=== PATIENT | female | born 1985 | race Caucasian/White ===

== ENCOUNTER 2016-07-07 07:59 | Day surgery (SDC) | payer OTHER ==
[2016-07-07] MEDS ORDERED: LACTATED RINGERS 1,000 ML IV ONE ×2 (08:28→09:55)
[2016-07-07] MEDS ORDERED: PROPOFOL 200 MG/20 ML VIAL IVP ONE (09:10)
[2016-07-07] MEDS ORDERED: MIDAZOLAM 2 MG/2 ML VIAL IVP ONE (09:10)
[2016-07-07] MEDS ORDERED: fentaNYL 250 MCG/5 ML VIAL IVP ONE (09:10)
== END 2016-07-07 08:00 | disposition home or self-care (01) ==
PROC: 0DBL8ZX Excision of Transverse Colon, Via Natural or Artificial Opening Endoscopic, Diagnostic (ICD-10-PCS; 2016-07-07)
PROC: 0DBN8ZX Excision of Sigmoid Colon, Via Natural or Artificial Opening Endoscopic, Diagnostic (ICD-10-PCS; 2016-07-07)
PROC: 0DBP8ZX Excision of Rectum, Via Natural or Artificial Opening Endoscopic, Diagnostic (ICD-10-PCS; 2016-07-07)
PROC: 0DBM8ZX Excision of Descending Colon, Via Natural or Artificial Opening Endoscopic, Diagnostic (ICD-10-PCS; 2016-07-07)
PROC: 0DBH8ZX Excision of Cecum, Via Natural or Artificial Opening Endoscopic, Diagnostic (ICD-10-PCS; 2016-07-07)
PROC: 0DBK8ZX Excision of Ascending Colon, Via Natural or Artificial Opening Endoscopic, Diagnostic (ICD-10-PCS; principal; 2016-07-07 09:15)
DX: R10.31 Right lower quadrant pain (principal); R19.4 Change in bowel habit; R19.5 Other fecal abnormalities; K59.00 Constipation, unspecified; R19.7 Diarrhea, unspecified; F41.9 Anxiety disorder, unspecified; K64.8 Other hemorrhoids
CPT/HCPCS: 45380; 81025; J3010; J7120

== ENCOUNTER 2016-11-18 12:14 | Emergency (ER) | payer OTHER ==
[2016-11-18] MEDS ORDERED: GABAPENTIN 100 MG CAPSULE PO STA (15:23)
--- NOTE | 2016-11-18 15:33 | ED Physician Documentation ---
PD HPI FOCAL NEURO - Stated complaint Stated Complaint: BI HAND NUMBNESS - Chief complaint Chief Complaint: Neuro - History obtained from History obtained from: Patient - History of Present Illness Timing - onset: Other (Previously healthy 31-year-old woman who for the last 4 weeks has had a progressive illness that started with burning of her hand and has progressed to burning of both upper and lower extremities and decreased dexterity especially in the upper extremities with neck and headache. She had a cervical spine x-ray done by her primary care physician that was normal and per her, I am unable to review them, labs including inflammatory markers and vitamin testing that were basically normal.) Review of Systems Constitutional: denies: Fever, Chills, Weight Loss, Sweats Nose: denies: Rhinorrhea / runny nose, Congestion Cardiac: denies: Chest pain / pressure, Palpitations Respiratory: denies: Dyspnea, Cough GI: denies: Abdominal Pain, Nausea, Vomiting PD PAST MEDICAL HISTORY - Past Medical History Cardiovascular: None Respiratory: None Endocrine/Autoimmune: None GI: Other : None HEENT: None Psych: None Musculoskeletal: None Derm: None - Past Surgical History General: Appendectomy HEENT: Tonsil/Adenoidectomy - Present Medications Home Medications: Ambulatory Orders Medication Instructions Recorded Confirmed Gabapentin 300 mg PO TID #90 capsule 11/18/16 Oxycodone HCl/Acetaminophen 1 - 2 tab PO Q4H PRN #15 tablet 11/18/16 [Percocet 5-325 mg Tablet] - Allergies Allergies/Adverse Reactions: Allergies Allergy/AdvReac Type Severity Reaction Status Date / Time No Known Drug Allergies Allergy Verified 07/06/16 13:56 PD ED PE NORMAL - Vitals Vital signs reviewed: Yes - General General: Alert and oriented X 3, No acute distress - HEENT HEENT: PERRL, EOMI - Neck Neck: Supple, no meningeal sign, No bony TTP - Cardiac Cardiac: RRR, No murmur - Respiratory Respiratory: No respiratory distress, Clear bilaterally - Abdomen Abdomen: Normal bowel sounds, Soft, Non tender - Back Back: No CVA TTP, No spinal TTP - Extremities Extremities: No edema, No calf tenderness / cord - Neuro Neuro: Alert and oriented X 3, No motor deficit, No sensory deficit, Normal speech - Psych Psych: Normal mood, Normal affect NIHSS - Time Time: 15:20 - Level of Consciousness Level of consciousness: (0) Alert, Keenly responsive LOC Questions: (0) Answers both Q's correct LOC Commands: (0) Performs both correctly - Gaze Best Gaze: (0) Normal - Visual Visual: (0) No loss - Facial Palsy Facial Palsy: (0) Normal, symmetrical movement - Motor Arms (both separate) Motor Arm (right): (0) No drift Motor Arm (left): (0) No drift - Motor Legs (both separate) Motor Leg (right): (0) No drift Motor Leg (left): (0) No drift - Limb Ataxia Limb Ataxia: (0) Absent - Sensory Sensory: (0) Normal - Best Language Best Language: (0) No aphasia - Dysarthria Dysarthria: (0) Normal - Extinction and Inattention (formally neg Extinction and inattention: (0) No abnormality - Total Score/Results Total Score/Result: 0 Results - Vitals Vitals: Vital Signs - 24 hr 11/18/16 12:30 Temperature 36.2 C L Heart Rate 76 Respiratory 18 Rate Blood Pressure 125/84 H O2 Saturation 99 Oxygen O2 Source Room air PD MEDICAL DECISION MAKING - ED course ED course: 31-year-old woman presents with progressive neurologic illness, much has already been ruled out in the outpatient setting. Try to get an MRI today, however was too late in the day for her and she seemed happy with a trial of gabapentin and Percocet pending outpatient follow-up. Departure - Departure Disposition: 01 Home, Self Care Clinical Impression: Neuropathy Condition: Good Record reviewed to determine appropriate education?: Yes Prescriptions: Gabapentin 300 mg PO TID #90 capsule Oxycodone HCl/Acetaminophen [Percocet 5-325 mg Tablet] 1 - 2 tab PO Q4H PRN #15 tablet PRN Reason: Pain Comments: Keep your appointment for MRI next week as discussed. Do not drink or drive with either of the medications I am giving you. Return if worse. Your blood pressure was elevated today on check into the emergency department. This does not mean that you have hypertension, it is a common phenomenon to come to the emergency department and have elevated blood pressure. I recommend that she see her primary care physician within the week to have it rechecked when you are feeling better.
[2016-11-18] MEDS ORDERED: GABAPENTIN 300 MG CAPSULE ONE (15:40)
[2016-11-18 15:53] VITALS: BP 109/76
== END 2016-11-18 16:07 | disposition home or self-care (01) ==
LOC: ED 12:14
DX: G62.9 Polyneuropathy, unspecified (principal); R03.0 Elevated blood-pressure reading, without diagnosis of hypertension
CPT/HCPCS: 99283; A9270; 80053; 83690; 84443; 85025; 85651; 86140

== ENCOUNTER 2017-02-02 10:49 | Emergency (ER) | payer OTHER ==
--- NOTE | 2017-02-02 12:04 | XRAY Preliminary Report ---
Exam: XR Chest 2 View PA/LAT IMPRESSION: 1. Unremarkable 2-view chest radiography. [facility] SITE ID: [id number]
--- NOTE | 2017-02-02 12:06 | XRAY Report ---
EXAM: CHEST RADIOGRAPHY EXAM DATE: 02/02/2017 11:43 AM. CLINICAL HISTORY: Shortness of breath. COMPARISON: None. TECHNIQUE: 2 views. FINDINGS: Lungs/Pleura: No focal opacities or vascular congestion. No pleural effusion or pneumothorax. Normal volumes. Mediastinum: Heart and mediastinal contours are unremarkable. Other: Bones unremarkable. IMPRESSION: 1. Unremarkable 2-view chest radiography. [facility] Referring Provider Line: [phone] SITE ID: [id number]
--- NOTE | 2017-02-02 12:30 | ED Physician Documentation ---
PD HPI DYSPNEA - Stated complaint Stated Complaint: SOA - Chief complaint Chief Complaint: Resp - History obtained from History obtained from: Patient - History of Present Illness Timing - onset: How many months ago (4) Timing - onset during: Rest Timing - duration: Months (4) Timing - details: Gradual onset, Still present, Waxing and waning Improved by: Rest Associated symptoms: Cough, Chest pain / discomfort, Anxiety, Other (burning in the hands and arms) Similar symptoms before: Diagnosis (anxiety) Recently seen: Other (The patient has been seen here in October and by her PMD.) - Additional information Additional information: 31 y/o female with months history of a variety of symptoms. Today she is complaining of shortness of breath at rest. She has had occasional dyspnea associated with exertion and today this is occurring at rest. Review of Systems Constitutional: reports: Chills, Fatigue. denies: Fever Eyes: denies: Decreased vision Ears: denies: Ear pain Nose: reports: Rhinorrhea / runny nose, Congestion Throat: denies: Sore throat Cardiac: denies: Chest pain / pressure, Palpitations Respiratory: reports: Dyspnea. denies: Cough GI: denies: Abdominal Pain, Nausea, Vomiting : denies: Dysuria, Frequency Skin: denies: Rash Musculoskeletal: denies: Neck pain, Back pain, Extremity pain Neurologic: denies: Generalized weakness, Focal weakness, Numbness PD PAST MEDICAL HISTORY - Past Medical History Cardiovascular: None Respiratory: None Endocrine/Autoimmune: None GI: Other : None HEENT: None Psych: None Musculoskeletal: None Derm: None - Past Surgical History General: Appendectomy HEENT: Tonsil/Adenoidectomy - Present Medications Home Medications: Ambulatory Orders Medication Instructions Recorded Confirmed Gabapentin 300 mg PO TID #90 capsule 11/18/16 Oxycodone HCl/Acetaminophen 1 - 2 tab PO Q4H PRN #15 tablet 11/18/16 [Percocet 5-325 mg Tablet] - Allergies Allergies/Adverse Reactions: Allergies Allergy/AdvReac Type Severity Reaction Status Date / Time No Known Drug Allergies Allergy Verified 02/02/17 10:59 - Social History Does the pt smoke?: No Smoking Status: Never smoker Does the pt drink ETOH?: Yes Does the pt have substance abuse?: Yes - Immunizations Immunizations are current?: Yes PD ED PE NORMAL - Vitals Vital signs reviewed: Yes (hypertensive ) - General General: Alert and oriented X 3, No acute distress, Well developed/nourished - HEENT HEENT: Atraumatic, PERRL, EOMI, Ears normal, Pharynx benign, Dentition benign - Neck Neck: Supple, no meningeal sign, No bony TTP - Cardiac Cardiac: RRR, No murmur - Respiratory Respiratory: No respiratory distress, Clear bilaterally - Abdomen Abdomen: Soft, Non tender - Back Back: No CVA TTP, No spinal TTP - Derm Derm: Normal color, Warm and dry, No rash - Extremities Extremities: No deformity, No edema - Neuro Neuro: No motor deficit, No sensory deficit - Psych Psych: Normal mood, Normal affect Results - Vitals Vitals: Vital Signs - 24 hr 02/02/17 02/02/17 02/02/17 10:52 11:55 12:59 Temperature 36.3 C L 36.5 C 36.6 C Heart Rate 93 70 64 Respiratory 20 16 18 Rate Blood Pressure 135/97 H 113/82 H 117/71 O2 Saturation 100 100 98 02/02/17 14:03 Temperature 36.9 C Heart Rate 74 Respiratory 18 Rate Blood Pressure 114/60 O2 Saturation 99 Oxygen O2 Source Room air - EKG (time done) 1110 Rate: Rate (enter#) (74) Ischemia: Q waves (anterior ) Compare to prior EKG: Old EKG unavailable Computer interpretation: Agree with computer - Labs Labs: Laboratory Tests 02/02/17 02/02/17 02/02/17 13:00 13:41 13:41 WBC 5.9 RBC 4.78 Hgb 14.4 Hct 41.7 MCV 87.3 MCH 30.1 MCHC 34.5 RDW 12.6 Plt Count 283 MPV 8.6 Neut # 3.2 Lymph # 2.2 [place] # 0.3 Eos # 0.1 Baso # 0.1 Absolute Nucleated RBC 0.00 Nucleated RBC % 0.0 Sodium 139 Potassium 4.0 Chloride 102 Carbon Dioxide 26 Anion Gap 11.0 BUN 8 Creatinine 0.5 Estimated GFR (MDRD) 146 Glucose 94 Calcium 10.0 Total Bilirubin 0.9 AST 19 ALT 25 Alkaline Phosphatase 75 Troponin I Total Protein 7.7 Albumin 4.6 Globulin 3.1 Albumin/Globulin Ratio 1.5 Lipase 26 TSH Urine Color YELLOW Urine Clarity CLEAR Urine pH 7.5 Ur Specific [place] 1.010 Urine Protein NEGATIVE Urine Glucose (UA) NEGATIVE Urine Ketones NEGATIVE Urine Occult Blood LARGE H Urine Nitrite NEGATIVE Urine Bilirubin NEGATIVE Urine Urobilinogen 0.2 (NORMAL) Ur Leukocyte Esterase NEGATIVE Urine RBC 0-5 Urine WBC 0-3 Ur Squamous Epith Cells NONE SEEN Urine Bacteria Rare Ur Microscopic Review INDICATED Urine Culture Comments NOT INDICATED Urine HCG, Qual NEGATIVE 02/02/17 02/02/17 13:41 13:41 WBC RBC Hgb Hct MCV MCH MCHC RDW Plt Count MPV Neut # Lymph # [place] # Eos # Baso # Absolute Nucleated RBC Nucleated RBC % Sodium Potassium Chloride Carbon Dioxide Anion Gap BUN Creatinine Estimated GFR (MDRD) Glucose Calcium Total Bilirubin AST ALT Alkaline Phosphatase Troponin I < 0.04 Total Protein Albumin Globulin Albumin/Globulin Ratio Lipase TSH 1.72 Urine Color Urine Clarity Urine pH Ur Specific [place] Urine Protein Urine Glucose (UA) Urine Ketones Urine Occult Blood Urine Nitrite Urine Bilirubin Urine Urobilinogen Ur Leukocyte Esterase Urine RBC Urine WBC Ur Squamous Epith Cells Urine Bacteria Ur Microscopic Review Urine Culture Comments Urine HCG, Qual - Rads (name of study) 2 view chest Radiology: Prelim report reviewed (Impression: 1. Unremarkable two-view chest radiography.), EMP read indepedently, See rad report Procedures - IVC sono (time) 1240 Bedside IVC sono: IVC measures (cm) (1.20), IVC collapsed c insp (cm) (complete) , Dehydration (mild) PD MEDICAL DECISION MAKING - ED course Complexity details: reviewed old records, reviewed results, re-evaluated patient , considered differential, d/w patient, d/w family ED course: 31-year-old female with a variety of symptoms some of which are consistent with hyperventilation and the symptoms she is here with today is shortness of breath at rest. She has some mild dehydration on interrogation of the inferior vena cava she is otherwise without findings on a workup that included the electrocardiogram chest x-ray CBC ER panel troponin and urinalysis with test.I discussed with the patient and her anxiety and its manifestations and have asked the patient to follow-up with her primary care doctor. Departure - Departure Disposition: 01 Home, Self Care Clinical Impression: Anxiety, Dehydration Condition: Stable Instructions: ED Panic Attack, ED Dehydration Follow-Up: Opal Gonsalez MD [Primary Care Provider] -
[2017-02-02 13:51] LABS: BASOPHILS # (AUTO) 0.1 10^3/uL (0.0-0.1); BASOPHILS % (AUTO) 2.1 %; EOSINOPHILS # (AUTO) 0.1 10^3/uL (0.0-0.7); EOSINOPHILS % (AUTO) 1.5 %; HCT - HEMATOCRIT 41.7 % (37.0-47.0); HGB - HEMOGLOBIN 14.4 g/dL (12.0-16.0); LYMPHOCYTES # (AUTO) 2.2 10^3/uL (1.5-3.5); LYMPHOCYTES % (AUTO) 37.1 %; MEAN CORPUSCULAR HEMOGLOBIN 30.1 pg (27.0-31.0); MEAN CORPUSCULAR HGB CONC 34.5 g/dL (32.0-36.0); MEAN CORPUSCULAR VOLUME 87.3 fL (81.0-99.0); MEAN PLATELET VOLUME 8.6 fL (7.9-10.8); MONOCYTES # (AUTO) 0.3 10^3/uL (0.0-1.0); MONOCYTES % (AUTO) 5.1 %; NEUTROPHILS # (AUTO) 3.2 10^3/uL (1.5-6.6); NEUTROPHILS % (AUTO) 54.2 %; RED BLOOD COUNT 4.78 10^6/uL (4.20-5.40); RED CELL DISTRIBUTION WIDTH 12.6 % (12.0-15.0); UNCORRECTED WHITE BLOOD COUNT 5.9 x10^3/uL; WHITE BLOOD COUNT 5.9 x10^3/uL (4.8-10.8)
[2017-02-02 14:04] LABS: ALBUMIN/GLOBULIN RATIO 1.5 (1.0-2.2); BILIRUBIN,TOTAL 0.9 mg/dL (0.2-1.0); CREATININE 0.5 mg/dL (0.4-1.0); TOTAL PROTEIN 7.7 g/dL (6.7-8.2)
[2017-02-02 14:14] LABS: BILIRUBIN,URINE NEGATIVE (NEGATIVE); PH,URINE 7.5 PH (5.0-7.5)
[2017-02-02 14:18] LABS: HCG UR QUAL NEGATIVE; UA w/ MICROSCOPIC CHARGE YES
[2017-02-02 14:26] LABS: UR CULTURE IF IND NOT INDICATED; WBC,URINE 0-3 /HPF (0-5)
[2017-02-02 15:15] VITALS: BP 117/58
== END 2017-02-02 15:23 | disposition home or self-care (01) ==
LOC: ED 10:49
DX: E86.0 Dehydration (principal); F41.9 Anxiety disorder, unspecified; R06.4 Hyperventilation
CPT/HCPCS: 36415; 71020; 80053; 81001; 81003; 81025; 83690; 84443; 84484; 85025; 87086; 93005; 99283; 99284

== ENCOUNTER 2017-05-20 19:00 | Emergency (ER) | payer OTHER ==
[2017-05-20] MEDS ORDERED: diphenhydrAMINE INJ 50 MG/ML VIAL IVP STA (19:23)
[2017-05-20] MEDS ORDERED: DEXAMETHASONE 10 MG/ML VIAL IVP STA (19:23)
[2017-05-20] MEDS ORDERED: METOCLOPRAMIDE 10 MG/2 ML VIAL IVP STA (19:23)
[2017-05-20] MEDS ORDERED: SODIUM CHLORIDE 0.9% 1,000 ML IV ONE (19:23)
--- NOTE | 2017-05-20 19:27 | ED Physician Documentation ---
PD HPI FOCAL NEURO - Stated complaint Stated Complaint: HOOD - Chief complaint Chief Complaint: Neuro - History obtained from History obtained from: Patient - History of Present Illness Timing - onset: Other (She has been dealing with headaches and some other neurologic symptoms for quite some time. On and off headaches that she thinks her migraines. She had an MRI that she says per her was negative in December and EMG testing at the time that was negative. Last 4 weeks she has had a constant left retro-orbital headache radiating to the left occiput and down the body associated with photophobia. She has tried many things at home for this including ibuprofen, Percocet, marijuana without relief. She saw a neurologist today who based on hand and feet tingling said she had carpal tunnel, but she says the EMG testing a few months ago was negative.) Timing - details: Other (She is now miserable because she has had 4 weeks of constant headache that is resistant to any therapy she is tried at home.) Review of Systems Constitutional: denies: Fever, Chills Eyes: reports: Reviewed and negative Nose: denies: Rhinorrhea / runny nose, Reviewed and negative Throat: denies: Sore throat Cardiac: denies: Chest pain / pressure, Palpitations PD PAST MEDICAL HISTORY - Past Medical History Past Medical History: Yes Cardiovascular: None Respiratory: None Neuro: Headache/migraine, Peripheral neuropathy, Other Endocrine/Autoimmune: None GI: None : None HEENT: None Psych: None Musculoskeletal: None Derm: None Other Past Medical History: Carpal tunnel - Past Surgical History Past Surgical History: Yes General: Appendectomy HEENT: Tonsil/Adenoidectomy, Other - Present Medications Home Medications: Ambulatory Orders Medication Instructions Recorded Confirmed Gabapentin 300 mg PO TID #90 capsule 11/18/16 05/20/17 SUMAtriptan [Imitrex] 25 mg PO BID PRN #20 tablet 05/20/17 - Allergies Allergies/Adverse Reactions: Allergies Allergy/AdvReac Type Severity Reaction Status Date / Time No Known Drug Allergies Allergy Verified 05/20/17 19:08 - Social History Does the pt smoke?: No Smoking Status: Never smoker Does the pt drink ETOH?: Yes Does the pt have substance abuse?: Yes - Immunizations Immunizations are current?: Yes PD ED PE NORMAL - Vitals Vital signs reviewed: Yes - General General: Alert and oriented X 3, Other (Intermittently tearful and frustrated but not in overt pain) - HEENT HEENT: PERRL, EOMI, Ears normal, Moist mucous membranes, Pharynx benign - Neck Neck: Supple, no meningeal sign, No bony TTP - Cardiac Cardiac: RRR, No murmur - Respiratory Respiratory: No respiratory distress, Clear bilaterally - Abdomen Abdomen: Normal bowel sounds, Soft, Non tender - Derm Derm: Normal color, Warm and dry - Neuro Neuro: Alert and oriented X 3, 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 Eye Opening: Spontaneous Motor: Obeys Commands Verbal: Oriented GCS Score: 15 - Psych Psych: Normal mood, Normal affect Results - Vitals Vitals: Vital Signs - 24 hr 05/20/17 19:08 Temperature 37.1 C Heart Rate 100 Respiratory 16 Rate Blood Pressure 133/75 H O2 Saturation 100 Oxygen O2 Source Room air - Labs Labs: Laboratory Tests 05/20/17 05/20/17 05/20/17 19:27 19:30 19:30 WBC 7.6 RBC 4.75 Hgb 14.2 Hct 42.0 MCV 88.4 MCH 29.9 MCHC 33.8 RDW 12.7 Plt Count 261 MPV 8.8 Neut # 4.8 Lymph # 1.9 [place] # 0.5 Eos # 0.3 Baso # 0.1 Absolute Nucleated RBC 0.00 Nucleated RBC % 0.0 Sodium 140 Potassium 3.7 Chloride 109 Carbon Dioxide 27 Anion Gap 4.0 L BUN 10 Creatinine 0.6 Estimated GFR (MDRD) 118 Glucose 108 H Calcium 9.1 Total Bilirubin 0.6 AST 72 H ALT 63 H Alkaline Phosphatase 85 Total Protein 7.6 Albumin 4.6 Globulin 3.0 Albumin/Globulin Ratio 1.5 Lipase 26 Urine Color YELLOW Urine Clarity CLEAR Urine pH 6.5 Ur Specific [place] 1.015 Urine Protein NEGATIVE Urine Glucose (UA) NEGATIVE Urine Ketones NEGATIVE Urine Occult Blood NEGATIVE Urine Nitrite NEGATIVE Urine Bilirubin NEGATIVE Urine Urobilinogen 0.2 (NORMAL) Ur Leukocyte Esterase TRACE H Urine RBC 0-5 Urine WBC 0-3 Ur Squamous Epith Cells FEW Squamous Urine Bacteria Rare Ur Microscopic Review INDICATED Urine Culture Comments INDICATED Urine HCG, Qual NEGATIVE PD MEDICAL DECISION MAKING - ED course ED course: 31-year-old woman with status migrainosus, recent negative imaging. She had complete relief after Benadryl, dexamethasone, and Reglan here and she was very grateful. Departure - Departure Disposition: 01 Home, Self Care Clinical Impression: Migraine Qualifiers: Migraine type: chronic without aura Status migrainosus presence: with status migrainosus Intractability: not intractable Qualified Code(s): G43.701 - Chronic migraine without aura, not intractable, with status migrainosus Condition: Good Record reviewed to determine appropriate education?: Yes Instructions: ED Headache Migraine, Imitrex Prescriptions: SUMAtriptan [Imitrex] 25 mg PO BID PRN #20 tablet PRN Reason: Headache Comments: Follow-up with your doctor, let her know if the Imitrex is working. She can try other options if it is not. She may want to start you on a prophylactic medication if you continue having frequent migraines, many options are available there. Your blood pressure was elevated today on check into the emergency department. This does not mean that you have hypertension, it is a common phenomenon to come to the emergency department and have elevated blood pressure. I recommend that you see your primary care physician within the week to have it rechecked when you are feeling better.
[2017-05-20 20:00] LABS: BASOPHILS # (AUTO) 0.1 10^3/uL (0.0-0.1); BASOPHILS % (AUTO) 0.9 %; EOSINOPHILS # (AUTO) 0.3 10^3/uL (0.0-0.7); EOSINOPHILS % (AUTO) 3.9 %; HGB - HEMOGLOBIN 14.2 g/dL (12.0-16.0); LYMPHOCYTES # (AUTO) 1.9 10^3/uL (1.5-3.5); LYMPHOCYTES % (AUTO) 25.1 %; MEAN CORPUSCULAR HEMOGLOBIN 29.9 pg (27.0-31.0); MEAN CORPUSCULAR HGB CONC 33.8 g/dL (32.0-36.0); MEAN CORPUSCULAR VOLUME 88.4 fL (81.0-99.0); MEAN PLATELET VOLUME 8.8 fL (7.9-10.8); MONOCYTES # (AUTO) 0.5 10^3/uL (0.0-1.0); MONOCYTES % (AUTO) 6.5 %; NEUTROPHILS # (AUTO) 4.8 10^3/uL (1.5-6.6); NEUTROPHILS % (AUTO) 63.6 %; PLT - PLATELET COUNT 261 10^3/uL (130-450); RED BLOOD COUNT 4.75 10^6/uL (4.20-5.40); RED CELL DISTRIBUTION WIDTH 12.7 % (12.0-15.0); WHITE BLOOD COUNT 7.6 x10^3/uL (4.8-10.8)
[2017-05-20 20:03] LABS: BILIRUBIN,URINE NEGATIVE (NEGATIVE); GLUCOSE, URINE (UA) NEGATIVE (NEGATIVE); KETONES,URINE (UA) NEGATIVE (NEGATIVE); LEUKOCYTE ESTERASE, URINE TRACE (NEGATIVE); NITRITE,URINE NEGATIVE (NEGATIVE); OCCULT BLOOD,URINE NEGATIVE (NEGATIVE); PH,URINE 6.5 PH (5.0-7.5); PROTEIN,URINE NEGATIVE (NEGATIVE); UROBILINOGEN,URINE 0.2 (NORMAL) E.U./dL (NORMAL)
[2017-05-20 20:11] LABS: ALBUMIN 4.6 g/dL (3.2-5.5); ALBUMIN/GLOBULIN RATIO 1.5 (1.0-2.2); BILIRUBIN,TOTAL 0.6 mg/dL (0.2-1.0); CALCIUM 9.1 mg/dL (8.5-10.3); CREATININE 0.6 mg/dL (0.4-1.0); TOTAL PROTEIN 7.6 g/dL (6.7-8.2)
[2017-05-20 20:18] LABS: BACTERIA,URINE Rare /HPF (None Seen); CLARITY,URINE CLEAR (CLEAR); HCG UR QUAL NEGATIVE; RBC,URINE 0-5 /HPF (0-5); SQUAMOUS EPITHELIAL CELL,UR FEW Squamous (<= Few)
[2017-05-20 21:19] VITALS: BP 118/83
== END 2017-05-20 21:16 | disposition home or self-care (01) ==
LOC: ED 19:00
DX: G43.701 Chronic migraine without aura, not intractable, with status migrainosus (principal); R03.0 Elevated blood-pressure reading, without diagnosis of hypertension; G62.9 Polyneuropathy, unspecified
CPT/HCPCS: 36415; 80053; 81001; 81003; 81025; 83690; 85025; 87086; 96361; 96374; 96375; 99283; 99284

== ENCOUNTER 2017-05-22 21:09 | Emergency (ER) | payer OTHER ==
--- NOTE | 2017-05-22 21:23 | ED Physician Documentation ---
PD HPI HEADACHE - Stated complaint Stated Complaint: MIGRAINE - Chief complaint Chief Complaint: Neuro - History obtained from History obtained from: Patient - History of Present Illness Timing - onset: How many weeks ago (4) Timing - onset during: Light activity Timing - duration: Weeks Timing - details: Gradual onset, Constant, Waxing and waning Worst headache ever?: No: Worst headache ever? (similar to other migraines but has persisted for long time.) Location: Left Quality: Throbbing, Aching Associated symptoms: Nausea, Vision changes (intermittent left lateral scotomata.). No: Fever, Stiff neck, Vomiting, Weakness, Numbness Worsened by: Noise Contributing factors: No: Recent illness, Trauma Similar symptoms before: Diagnosis (presumed migraines intermittently. Had MRI in the past year.) Recently seen: Emergency Dept (couple days ago with this, and headache back similarly. No change in character of it.) Review of Systems Constitutional: denies: Fever, Chills Nose: reports: Sinus pressure / pain. denies: Rhinorrhea / runny nose, Congestion Throat: denies: Sore throat Cardiac: denies: Chest pain / pressure, Palpitations Respiratory: denies: Cough GI: reports: Nausea. denies: Vomiting, Diarrhea Skin: denies: Rash, Lesions PD PAST MEDICAL HISTORY - Past Medical History Cardiovascular: None Respiratory: None Neuro: Headache/migraine, Peripheral neuropathy, Other Endocrine/Autoimmune: None GI: None : None HEENT: None Psych: None Musculoskeletal: None Derm: None - Past Surgical History Past Surgical History: Yes General: Appendectomy HEENT: Tonsil/Adenoidectomy, Other - Present Medications Home Medications: Ambulatory Orders Medication Instructions Recorded Confirmed Gabapentin 300 mg PO TID #90 capsule 11/18/16 05/22/17 SUMAtriptan [Imitrex] 25 mg PO BID PRN #20 tablet 05/20/17 05/22/17 Dexamethasone [Decadron] 4 mg PO DAILY #5 tablet 05/22/17 HYDROcod/ACETAM 5/325 [Lewis 5/325] 1 tab PO Q6H PRN #15 tablet 05/22/17 Ondansetron Odt [Zofran] 4 mg TL Q6H PRN #15 tablet 05/22/17 - Allergies Allergies/Adverse Reactions: Allergies Allergy/AdvReac Type Severity Reaction Status Date / Time No Known Drug Allergies Allergy Verified 05/22/17 21:17 - Social History Does the pt smoke?: No Smoking Status: Never smoker Does the pt drink ETOH?: Yes Does the pt have substance abuse?: Yes - Immunizations Immunizations are current?: Yes PD ED PE NORMAL - Vitals Vital signs reviewed: Yes - General General: Alert and oriented X 3, No acute distress, Well developed/nourished - HEENT HEENT: PERRL (light sensitive), Ears normal, Pharynx benign - Neck Neck: Supple, no meningeal sign, No adenopathy - Cardiac Cardiac: RRR, No murmur - Respiratory Respiratory: Clear bilaterally - Back Back: No CVA TTP, No spinal TTP - Derm Derm: Normal color, Warm and dry - Neuro Neuro: Alert and oriented X 3, front line supervisor 2-12 intact, No motor deficit, No sensory deficit, Normal speech - Psych Psych: Normal mood, Normal affect Results - Vitals Vitals: Oxygen O2 Source Room air PD MEDICAL DECISION MAKING - ED course Complexity details: re-evaluated patient (nursing had difficulty with IV so gave IM meds and PO instead, still with good improvement. ), considered differential (still sounds like status migraine without red flags per se. Had had MRI in the past year so unlikely structural cause. ), d/w patient Departure - Departure Disposition: 01 Home, Self Care Clinical Impression: Migraine Qualifiers: Migraine type: without aura Status migrainosus presence: with status migrainosus Intractability: not intractable Qualified Code(s): G43.001 - Migraine without aura, not intractable, with status migrainosus Condition: Stable Record reviewed to determine appropriate education?: Yes Instructions: ED Headache Migraine Follow-Up: Opal Gonsalez MD [Primary Care Provider] - Prescriptions: Dexamethasone [Decadron] 4 mg PO DAILY #5 tablet HYDROcod/ACETAM 5/325 [Lewis 5/325] 1 tab PO Q6H PRN #15 tablet PRN Reason: Pain Ondansetron Odt [Zofran] 4 mg TL Q6H PRN #15 tablet PRN Reason: Nausea / Vomiting Comments: This still sounds like a status migraine. Use Decadron daily for 5 more days to help with the migraine. Also ondansetron every 6 hours if needed for nausea. Add Tylenol or hydrocodone if needed for residual headache. See if this decreases and goes away over the next day or 2. If he remains away then continue prior instructions of the sumatriptan along with Zofran and an ibuprofen with recurrent migraine episodes since see if it helps. Follow-up with your primary care if the current headache has not completely resolved over the next couple of days. Discharge Date/Time: 05/22/17 23:22
[2017-05-22] MEDS ORDERED: KETOROLAC 30 MG/ML VIAL IVP STA (21:47)
[2017-05-22] MEDS ORDERED: DEXAMETHASONE 10 MG/ML VIAL IVP STA (21:47)
[2017-05-22] MEDS ORDERED: METOCLOPRAMIDE 10 MG/2 ML VIAL IVP STA (21:47)
[2017-05-22] MEDS ORDERED: diphenhydrAMINE INJ 50 MG/ML VIAL IVP STA (21:47)
[2017-05-22] MEDS ORDERED: SODIUM CHLORIDE 0.9% 1,000 ML IV ONE (21:48)
[2017-05-22] MEDS ORDERED: PROMETHAZINE 25 MG/1 ML VIAL IM STA (22:24)
[2017-05-22] MEDS ORDERED: KETOROLAC 60 MG/2 ML VIAL IM STA (22:24)
[2017-05-22] MEDS ORDERED: DEXAMETHASONE 10 MG/ML VIAL PO STA (22:24)
[2017-05-22] MEDS ORDERED: traMADol 50 MG TABLET PO STA (22:25)
[2017-05-22] MEDS ORDERED: CHERRY SYRUP 10 ML UDC PO ONE (22:35)
[2017-05-22] MEDS ORDERED: HYDROcod/ACET 5/325 Prepack 6 PO STA (22:56)
[2017-05-22] MEDS ORDERED: ONDANSETRON ODT 4 MG Prepack 2 TL PRN (22:56)
[2017-05-22 23:04] VITALS: BP 116/69
== END 2017-05-22 23:22 | disposition home or self-care (01) ==
LOC: ED 21:09
DX: G43.001 Migraine without aura, not intractable, with status migrainosus (principal); G62.9 Polyneuropathy, unspecified
CPT/HCPCS: 96372; 99283; 99284; A9270

== ENCOUNTER 2017-06-02 13:25 | Emergency (ER) | payer OTHER ==
--- NOTE | 2017-06-02 15:17 | ED Physician Documentation ---
PD HPI HEADACHE - Stated complaint Stated Complaint: MIGRAINE - Chief complaint Chief Complaint: Neuro - History obtained from History obtained from: Patient, Family - History of Present Illness Timing - onset: How many months ago (1) Timing - onset during: Rest Timing - duration: Months (1) Timing - details: Gradual onset, Still present, Waxing and waning Location: Front Quality: Throbbing Associated symptoms: Nausea. No: Fever, Stiff neck, Vomiting Improved by: Rest, Dark room, Quiet, Meds Worsened by: Light, Noise, Moving Contributing factors: No: Anticoagulated Similar symptoms before: Diagnosis (migraine) Recently seen: Emergency Dept - Additional information Additional information: 23-year-old female with a history of migraine has had a constant migraine this past month. She has had imaging done in December of this year she has been into see her neurologist about some tingling in her hands and her headaches were not addressed. She has been into the emergency department twice with this headache and has had improvement with treatment in the department but has had headache return within 12-24 hours. She feels that the pain is in her frontal sinus. Review of Systems Constitutional: denies: Fever, Chills, Fatigue Eyes: denies: Loss of vision, Decreased vision, Photophobia, Discharge, Irritation Ears: reports: Other (poping and squishing in the ears). denies: Ear pain Nose: reports: Sinus pressure / pain. denies: Rhinorrhea / runny nose, Congestion Throat: denies: Dental pain / toothache, Sore throat Cardiac: denies: Chest pain / pressure, Palpitations Respiratory: denies: Dyspnea, Cough GI: reports: Nausea. denies: Abdominal Pain, Vomiting PD PAST MEDICAL HISTORY - Past Medical History Cardiovascular: None Respiratory: None Neuro: Headache/migraine, Peripheral neuropathy, Other Endocrine/Autoimmune: None GI: None : None HEENT: None Psych: None Musculoskeletal: None Derm: None - Past Surgical History Past Surgical History: Yes General: Appendectomy HEENT: Tonsil/Adenoidectomy, Other - Present Medications Home Medications: Ambulatory Orders Medication Instructions Recorded Confirmed Gabapentin 300 mg PO TID #90 capsule 11/18/16 05/22/17 SUMAtriptan [Imitrex] 25 mg PO BID PRN #20 tablet 05/20/17 05/22/17 HYDROcod/ACETAM 5/325 [[place] 5/325] 1 tab PO Q6H PRN #15 tablet 05/22/17 Ondansetron Odt [Zofran] 4 mg TL Q6H PRN #15 tablet 05/22/17 - Allergies Allergies/Adverse Reactions: Allergies Allergy/AdvReac Type Severity Reaction Status Date / Time No Known Drug Allergies Allergy Verified 06/02/17 13:30 - Social History Does the pt smoke?: No Smoking Status: Never smoker Does the pt drink ETOH?: Yes Does the pt have substance abuse?: Yes - Immunizations Immunizations are current?: Yes PD ED PE NORMAL - Vitals Vital signs reviewed: Yes (hypertensive ) - General General: Alert and oriented X 3, Well developed/nourished, Other (31 y/o female in a darkened room with her hands over her face .) - HEENT HEENT: Atraumatic, PERRL, EOMI, Ears normal, Moist mucous membranes, Pharynx benign, Dentition benign - Neck Neck: Supple, no meningeal sign, No bony TTP - Cardiac Cardiac: RRR, No murmur - Respiratory Respiratory: No respiratory distress, Clear bilaterally - Abdomen Abdomen: Soft, Non tender - Back Back: No CVA TTP, No spinal TTP - Derm Derm: Normal color, Warm and dry, No rash - Extremities Extremities: No deformity, No edema - Neuro Neuro: No motor deficit, No sensory deficit Eye Opening: Spontaneous Motor: Obeys Commands Verbal: Oriented GCS Score: 15 - Psych Psych: Normal mood, Normal affect Results - Vitals Vitals: Vital Signs - 24 hr 06/02/17 06/02/17 06/02/17 13:28 15:21 15:22 Temperature 36.3 C L 36.6 C Heart Rate 93 94 75 Respiratory 18 16 18 Rate Blood Pressure 141/94 H 137/78 H 137/78 H O2 Saturation 96 98 98 Oxygen O2 Source Room air - Rads (name of study) CT sinuses Radiology: Prelim report reviewed (Impression: Normal sinus CT. No sinusitis.) , EMP read indepedently, See rad report PD MEDICAL DECISION MAKING - ED course Complexity details: reviewed old records, reviewed results, re-evaluated patient , considered differential, d/w patient, d/w family ED course: 31-year-old female with migraine that is persisted for weeks. She has improvement in her nausea and pain with IV Reglan and Benadryl and she is given Toradol in addition. Imaging of her sinuses is obtained today because of the frontal nature of the headache and the persistence of it and there was no evidence of sinusitis. Departure - Departure Disposition: 01 Home, Self Care Clinical Impression: Migraine Qualifiers: Migraine type: without aura Status migrainosus presence: with status migrainosus Intractability: not intractable Qualified Code(s): G43.001 - Migraine without aura, not intractable, with status migrainosus Condition: Stable Instructions: ED Headache Migraine Follow-Up: Opal Gonsalez MD [Primary Care Provider] -
[2017-06-02] MEDS ORDERED: SODIUM CHLORIDE 0.9% 1,000 ML IV ONE (15:20)
[2017-06-02] MEDS ORDERED: METOCLOPRAMIDE 10 MG/2 ML VIAL IVP STA (15:20)
[2017-06-02] MEDS ORDERED: diphenhydrAMINE INJ 50 MG/ML VIAL IVP STA (15:21)
[2017-06-02 15:22] VITALS: BP 137/78
--- NOTE | 2017-06-02 16:34 | CT Report ---
EXAM: CT SINUS EXAM DATE: 06/02/2017 04:21 PM. HISTORY: 5 weeks of migraine. Pain. COMPARISONS: None. TECHNIQUE: Routine multi-axial CT imaging performed through the sinuses. Iodinated IV contrast: None. Reconstructions: Coronal. In accordance with CT protocol optimization, one or more of the following dose reduction techniques w ere utilized for this exam: automated exposure control, adjustment of mA and/or KV based on patient s ize, or use of iterative reconstructive technique. FINDINGS: RIGHT Frontal: Normal. Ethmoid: Normal. Maxillary: Normal. Sphenoid: Normal. Drainage Pathways: The frontal recess, ostiomeatal complex and sphenoethmoidal recess are patent and normal. LEFT Frontal: Normal. Ethmoid: Normal. Maxillary: Normal. Sphenoid: Normal. Drainage Pathways: The frontal recess, ostiomeatal complex and sphenoethmoidal recess are patent and normal. Nasal Cavity: Normal. No mass or significant anatomic abnormality evident. Osseous Structures: Unremarkable. Orbits: Unremarkable. Other: None. IMPRESSION: Normal Sinus CT. No sinusitis. [facility] Referring Provider Line: [phone] SITE ID: [id number]
--- NOTE | 2017-06-02 16:34 | CT Preliminary Report ---
Exam: CT SINUSES IMPRESSION: Normal Sinus CT. No sinusitis. [facility] SITE ID: [id number]
[2017-06-02] MEDS ORDERED: KETOROLAC 60 MG/2 ML VIAL IVP STA (16:56)
== END 2017-06-02 17:15 | disposition home or self-care (01) ==
LOC: ED 13:25
DX: G43.001 Migraine without aura, not intractable, with status migrainosus (principal); G62.9 Polyneuropathy, unspecified
CPT/HCPCS: 70486; 96361; 96374; 96375; 99283; 99284

== ENCOUNTER 2017-10-25 08:00 | Outpatient (CLI) | payer OTHER ==
[2017-10-25 13:14] LABS: HB2 TOTAL 15.2 g/dL; HEMOGLOBIN A1C 0.46 g/dL; HEMOGLOBIN A1C % 4.9 % (4.6-6.2)
[2017-10-27 17:01] LABS: ANA SCREEN POSITIVE (NEGATIVE)
== END 2017-10-25 08:01 | disposition home or self-care (01) ==
LOC: LAB.N 08:00
PROVIDERS: ATTEND Physician Assistant
DX: G62.9 Polyneuropathy, unspecified (principal)
CPT/HCPCS: 36415; 81599; 82525; 82784; 83036; 83516; 86038; 86235; 86255

== ENCOUNTER 2018-06-26 10:38 | Emergency (ER) | payer OTHER ==
[2018-06-26] MEDS ORDERED: IOVERSOL 320 100 ML VIAL IVP ONE ×3 (10:39→13:11)
--- NOTE | 2018-06-26 11:21 | ED Physician Documentation ---
PD HPI FOCAL NEURO - Stated complaint Stated Complaint: BACK PX/FACIAL NUMBNESS - Chief complaint Chief Complaint: General - History obtained from History obtained from: Patient - History of Present Illness Timing - onset: How many days ago (She has been having intermittent symptoms of the last few days of difficulty with expressing words or thoughts. It has been more of a word search or some slurring of speech and not inappropriate words or word salad. She is also felt intermittent numbness on the right side of the face along the jaw. She states she did have some numbness on the right arm and leg as well yesterday. She felt disoriented driving earlier today and did not know the location she was that even though she recognized the street. She called her friend who suggested and urged her to stop and candy puller to the side of the road. Her friend came and got her and brought her here for evaluation. En route she is talking appropriately according to the friend.) Timing - duration: Days (several days of above symptoms but also a month or more of intermittent right facial numbness.) Timing - details: Intermittant Severity of deficit: Moderate Weakness: No: Face, Arm, Leg Numbness: Face, Arm, Right Associated symptoms: Other (trouble forming words/sentences.). No: Headache, Nausea / vomiting, Syncope Contributing factors: negative: Anticoagulated Baseline status: positive: A&OX3, ambulatory, indep Similar symptoms before: No diagnosis (has neuropathy for unknown reason.) Recently seen: Not recently seen, Other (no recent medication changes.) Review of Systems Constitutional: denies: Fever, Chills Nose: denies: Rhinorrhea / runny nose, Congestion Throat: denies: Sore throat Cardiac: denies: Chest pain / pressure Respiratory: denies: Cough GI: denies: Nausea, Vomiting, Diarrhea : denies: Dysuria, Frequency Skin: denies: Rash, Lesions Musculoskeletal: reports: Back pain (ongoing for few months, with referral for lumbar MRI in couple of weeks.) Neurologic: reports: Numbness, Near syncope (lightheaded at times.), Confused. denies: Focal weakness, Syncope, Headache Psychiatric: denies: Anxiety, Insomnia PD PAST MEDICAL HISTORY - Past Medical History Past Medical History: Yes Cardiovascular: None Respiratory: None Neuro: Migraines, Other Endocrine/Autoimmune: None GI: None CAGE SUPERVISOR: None : None HEENT: None Psych: None Musculoskeletal: None Derm: None Other Past Medical History: small fiber neuraopathy - Past Surgical History Past Surgical History: Yes General: Appendectomy HEENT: Tonsil/Adenoidectomy, Other - Present Medications Home Medications: Ambulatory Orders Medication Instructions Recorded Confirmed Gabapentin 300 mg PO TID #90 capsule 11/18/16 05/22/17 HYDROcod/ACETAM 5/325 [[place] 5/325] 1 tab PO Q6H PRN #15 tablet 05/22/17 Naratriptan HCl [Amerge] 1 tab ORAL BID 06/26/18 06/26/18 Topiramate [Topamax] 1 tab ORAL DAILY 06/26/18 06/26/18 - Allergies Allergies/Adverse Reactions: Allergies Allergy/AdvReac Type Severity Reaction Status Date / Time No Known Drug Allergies Allergy Verified 06/26/18 10:56 - Social History Does the pt smoke?: No Smoking Status: Former smoker Does the pt drink ETOH?: Yes ETOH Use: Wine Does the pt have substance abuse?: No Substance Use and Type: Marijuana - Immunizations Immunizations are current?: Yes - POLST Patient has POLST: No PD ED PE NORMAL - Vitals Vital signs reviewed: Yes - General General: Alert and oriented X 3, No acute distress, Well developed/nourished - HEENT HEENT: Pharynx benign - Neck Neck: Supple, no meningeal sign, No adenopathy, No JVD - Cardiac Cardiac: RRR, No murmur - Respiratory Respiratory: Clear bilaterally - Abdomen Abdomen: Soft, Non tender - Back Back: No CVA TTP - Derm Derm: Normal color, Warm and dry, No rash - Extremities Extremities: No deformity, No tenderness to palpate, Normal ROM s pain, No edema, No calf tenderness / cord - Neuro Neuro: Alert and oriented X 3, meteorologist in charge 2-12 intact, No motor deficit, No sensory deficit, Normal speech Eye Opening: Spontaneous Motor: Obeys Commands Verbal: Oriented GCS Score: 15 NIHSS - Level of Consciousness Level of consciousness: (0) Alert, Keenly responsive LOC Questions: (0) Answers both Q's correct LOC Commands: (0) Performs both correctly - Gaze Best Gaze: (0) Normal - Visual Visual: (0) No loss - Facial Palsy Facial Palsy: (0) Normal, symmetrical movement - Motor Arms (both separate) Motor Arm (right): (0) No drift Motor Arm (left): (0) No drift - Motor Legs (both separate) Motor Leg (right): (0) No drift Motor Leg (left): (0) No drift - Limb Ataxia Limb Ataxia: (0) Absent - Sensory Sensory: (0) Normal - Best Language Best Language: (0) No aphasia - Dysarthria Dysarthria: (0) Normal - Extinction and Inattention (formally neg Extinction and inattention: (0) No abnormality - Total Score/Results Total Score/Result: 0 Results - Vitals Vitals: Vital Signs - 24 hr 06/26/18 06/26/18 06/26/18 10:47 12:06 13:04 Temperature 36.6 C Heart Rate 87 70 73 Respiratory 18 16 16 Rate Blood Pressure 131/84 H 108/75 106/65 O2 Saturation 100 98 99 06/26/18 14:08 Temperature Heart Rate 68 Respiratory Rate Blood Pressure 100/66 O2 Saturation 98 Oxygen O2 Source Room air - Labs Labs: Laboratory Tests 06/26/18 06/26/18 06/26/18 12:00 12:00 12:00 WBC 4.6 L RBC 4.71 Hgb 14.8 Hct 41.5 MCV 88.0 MCH 31.3 H MCHC 35.6 RDW 12.4 Plt Count 278 MPV 9.3 Neut # (Auto) 2.6 Lymph # (Auto) 1.6 Heard # (Auto) 0.3 Eos # (Auto) 0.2 Baso # (Auto) 0.1 Absolute Nucleated RBC 0.00 Nucleated RBC % 0.0 WBC Morphology NORMAL APPEARANCE Platelet Estimate NORMAL (130-450,000) Platelet Morphology 1+ LARGE PLATELETS RBC Morph Micro Appear NORMAL APPEARANCE ESR 4 Sodium 141 Potassium 3.6 Chloride 109 Carbon Dioxide 23 Anion Gap 9.0 BUN 10 Creatinine 0.6 Estimated GFR (MDRD) 117 Glucose 92 Calcium 9.4 Magnesium 2.1 Total Bilirubin 1.2 H AST 18 ALT 23 Alkaline Phosphatase 70 Total Protein 7.5 Albumin 4.7 Globulin 2.8 Albumin/Globulin Ratio 1.7 Lipase 28 - Rads (name of study) nead and neck angio Radiology: Prelim report reviewed (no acute findings), See rad report PD MEDICAL DECISION MAKING - ED course Complexity details: reviewed results (No acute findings on angio head/neck. Does not sound ischemia/vascular. No headache, though could be complex migraine without headache. ), considered differential (Less likely TIA given her age but will check FISHER and some blood tests. Will check sed rate for potential vasculitis. She had had an MRI a year ago which was normal so MS is less likely at this time interval. She did not have a headache but could still consider complex migraine without headache. Certainly could consider psychogenic symptoms. She has not had any recent medication changes so unlikely medication side effects.No signs or symptoms of infection at this time so does not seem meningitic nor encephalitic. Basic blood tests are good with normal electrolytes and blood sugar as well.), d/w patient Departure - Departure Disposition: 01 Home, Self Care Clinical Impression: Right facial numbness, Intermittent confusion Condition: Stable Record reviewed to determine appropriate education?: Yes Follow-Up: Opal Gonsalez MD [Primary Care Provider] - Comments: Stay well-hydrated. Continue your current medications. Follow-up with your primary care in your neurologist this coming week. Your CT angiograms and blood tests are normal here without any obvious acute abnormalities.
[2018-06-26] MEDS ORDERED: SODIUM CHLORIDE 0.9% 1,000 ML IV ONE (11:46)
[2018-06-26 12:08] LABS: BASOPHILS # (AUTO) 0.1 10^3/uL (0.0-0.1); BASOPHILS % (AUTO) 1.3 %; EOSINOPHILS # (AUTO) 0.2 10^3/uL (0.0-0.7); EOSINOPHILS % (AUTO) 3.2 %; HGB - HEMOGLOBIN 14.8 g/dL (12.0-16.0); LYMPHOCYTES # (AUTO) 1.6 10^3/uL (1.5-3.5); LYMPHOCYTES % (AUTO) 34.1 %; MEAN CORPUSCULAR HEMOGLOBIN 31.3 pg (27.0-31.0); MEAN CORPUSCULAR HGB CONC 35.6 g/dL (32.0-36.0); MEAN PLATELET VOLUME 9.3 fL (7.9-10.8); MONOCYTES # (AUTO) 0.3 10^3/uL (0.0-1.0); MONOCYTES % (AUTO) 5.4 %; NEUTROPHILS # (AUTO) 2.6 10^3/uL (1.5-6.6); PLT - PLATELET COUNT 278 10^3/uL (130-450); RED BLOOD COUNT 4.71 10^6/uL (4.20-5.40); RED CELL DISTRIBUTION WIDTH 12.4 % (12.0-15.0); WHITE BLOOD COUNT 4.6 x10^3/uL (4.8-10.8)
[2018-06-26 12:17] LABS: ALBUMIN 4.7 g/dL (3.2-5.5); ALBUMIN/GLOBULIN RATIO 1.7 (1.0-2.2); BILIRUBIN,TOTAL 1.2 mg/dL (0.2-1.0); CALCIUM 9.4 mg/dL (8.5-10.3); CREATININE 0.6 mg/dL (0.4-1.0); MAGNESIUM 2.1 mg/dL (1.7-2.8); TOTAL PROTEIN 7.5 g/dL (6.7-8.2)
[2018-06-26 12:41] LABS: PLATELET ESTIMATE, MANUAL NORMAL (130-450,000) (NORMAL); PLATELET MORPHOLOGY 1+ LARGE PLATELETS (NORMAL); RBC MORPHOLOGY (MULTIPLE) NORMAL APPEARANCE (NORMAL)
[2018-06-26 14:09] VITALS: BP 100/66
--- NOTE | 2018-06-26 14:28 | CT Report ---
Reason: trouble speaking and left sided numbness earlier Procedure Date: 06/26/2018 Accession Number: [id number] / [id number] Procedure: CT - ANGIO HEAD W CPT Code: FULL RESULT: EXAM: CT ANGIOGRAM HEAD AND NECK. CT SCAN HEAD WITHOUT AND WITH CONTRAST. EXAM DATE:06/26/2018 01:08 PM. CLINICAL HISTORY: 32-year-old female. Trouble speaking and left numbness earlier today. COMPARISON:None. TECHNIQUE: Routine axial helical CTA imaging was performed from the aortic arch through the [place] of [place]. Routine axial CT imaging of the head was performed prior to and following contrast administration. Reconstructions: Routine multiplanar 3D MIP reconstructions. IV contrast: OPTI 320 80 ML. NASCET Criteria are used for stenosis measurements. In accordance with CT protocol optimization, one or more of the following dose reduction techniques were utilized for this exam: automated exposure control, adjustment of mA and/or KV based on patient size, or use of iterative reconstructive technique. FINDINGS: CT SCAN HEAD: Parenchyma: No intraparenchymal hemorrhage. No evidence of mass, midline shift, or CT findings of acute infarction. Bates-white differentiation is distinct. No abnormal enhancement on the postcontrast CT head. Extraaxial Spaces: Normal for age. No subdural or epidural collections identified. Ventricles: Normal in size and position. Sinuses and Orbits: Imaged paranasal sinuses, orbits, and mastoids show no significant abnormality. Bones: No evidence of fracture or calvarial defect. CT ANGIOGRAM EXTRACRANIAL CIRCULATION: The visualized arch is unremarkable. Great vessels are patent and unremarkable. Right Carotid: The common carotid, internal carotid, and external carotid arteries are widely patent. No dissection, significant atherosclerotic plaque, or calcification identified. Left Carotid: The common carotid, internal carotid, and external carotid arteries are widely patent. No dissection, significant atherosclerotic plaque, or calcification identified. Vertebrals: The vertebrobasilar system shows no stenosis, dissection, aneurysm, or significant atherosclerotic disease. CT ANGIOGRAM INTRACRANIAL CIRCULATION: The right carotid siphon is unremarkable. Patent posterior communicating arteries bilaterally. The left carotid siphon is unremarkable. The left CRM CONSULTANT is unremarkable. The right CRM CONSULTANT is unremarkable. The right MCA is unremarkable. The ACAs bilaterally are unremarkable. The left MCA is unremarkable. The dural venous sinuses are patent. Other: The visualized lung apices are clear. The visualized osseous structures demonstrate no acute abnormality. The visualized soft tissues of the neck are unremarkable. IMPRESSION: 1. No evidence of acute intracranial abnormality on the noncontrast CT head. Specifically, no evidence of acute infarct, intracranial hemorrhage, mass effect, midline shift, or hydrocephalus. 2. No abnormal enhancement on the postcontrast CT head. 3. No CTA evidence of hemodynamically significant stenosis, large vessel occlusion, acute dissection, aneurysm, or vascular malformation within extracranial or intracranial arteries. [facility]
--- NOTE | 2018-06-26 14:28 | CT Report ---
Reason: trouble speaking and left numbness earlier today Procedure Date: 06/26/2018 Accession Number: [id number] / [id number] Procedure: CT - ANGIO NECK W/WO CPT Code: FULL RESULT: EXAM: CT ANGIOGRAM HEAD AND NECK. CT SCAN HEAD WITHOUT AND WITH CONTRAST. EXAM DATE:06/26/2018 01:08 PM. CLINICAL HISTORY: 32-year-old female. Trouble speaking and left numbness earlier today. COMPARISON:None. TECHNIQUE: Routine axial helical CTA imaging was performed from the aortic arch through the [place] of [place]. Routine axial CT imaging of the head was performed prior to and following contrast administration. Reconstructions: Routine multiplanar 3D MIP reconstructions. IV contrast: OPTI 320 80 ML. NASCET Criteria are used for stenosis measurements. In accordance with CT protocol optimization, one or more of the following dose reduction techniques were utilized for this exam: automated exposure control, adjustment of mA and/or KV based on patient size, or use of iterative reconstructive technique. FINDINGS: CT SCAN HEAD: Parenchyma: No intraparenchymal hemorrhage. No evidence of mass, midline shift, or CT findings of acute infarction. Bates-white differentiation is distinct. No abnormal enhancement on the postcontrast CT head. Extraaxial Spaces: Normal for age. No subdural or epidural collections identified. Ventricles: Normal in size and position. Sinuses and Orbits: Imaged paranasal sinuses, orbits, and mastoids show no significant abnormality. Bones: No evidence of fracture or calvarial defect. CT ANGIOGRAM EXTRACRANIAL CIRCULATION: The visualized arch is unremarkable. Great vessels are patent and unremarkable. Right Carotid: The common carotid, internal carotid, and external carotid arteries are widely patent. No dissection, significant atherosclerotic plaque, or calcification identified. Left Carotid: The common carotid, internal carotid, and external carotid arteries are widely patent. No dissection, significant atherosclerotic plaque, or calcification identified. Vertebrals: The vertebrobasilar system shows no stenosis, dissection, aneurysm, or significant atherosclerotic disease. CT ANGIOGRAM INTRACRANIAL CIRCULATION: The right carotid siphon is unremarkable. Patent posterior communicating arteries bilaterally. The left carotid siphon is unremarkable. The left MEDICAL CODING SPECIALIST is unremarkable. The right MEDICAL CODING SPECIALIST is unremarkable. The right MCA is unremarkable. The ACAs bilaterally are unremarkable. The left MCA is unremarkable. The dural venous sinuses are patent. Other: The visualized lung apices are clear. The visualized osseous structures demonstrate no acute abnormality. The visualized soft tissues of the neck are unremarkable. IMPRESSION: 1. No evidence of acute intracranial abnormality on the noncontrast CT head. Specifically, no evidence of acute infarct, intracranial hemorrhage, mass effect, midline shift, or hydrocephalus. 2. No abnormal enhancement on the postcontrast CT head. 3. No CTA evidence of hemodynamically significant stenosis, large vessel occlusion, acute dissection, aneurysm, or vascular malformation within extracranial or intracranial arteries. [facility]
[2018-06-29 14:46] LABS: LEAD (B) COLLECTION SAMPLE VENOUS
== END 2018-06-26 15:02 | disposition home or self-care (01) ==
LOC: ED 10:38
DX: R41.0 Disorientation, unspecified (principal); R20.0 Anesthesia of skin; R47.89 Other speech disturbances; G62.9 Polyneuropathy, unspecified; Z87.891 Personal history of nicotine dependence
CPT/HCPCS: 36415; 70496; 70498; 80053; 82175; 83655; 83690; 83735; 83825; 85025; 85651; 96360; 99283; 99284; Q9967

== ENCOUNTER 2018-08-28 02:18 | Outpatient (CLI) | payer OTHER | END 2018-08-28 02:19 | disposition critical access hospital (66) | LOC: EMS 02:18 | PROVIDERS: ATTEND Surgery | DX: R07.9 Chest pain, unspecified (principal); R42 Dizziness and giddiness | CPT/HCPCS: A0425; A0429 ==

== ENCOUNTER 2018-08-28 02:35 | Emergency (ER) | payer OTHER ==
--- NOTE | 2018-08-28 03:00 | ED Physician Documentation ---
History of Present Illness - Stated complaint Stated Complaint: DIZZY/CP - Chief complaint Chief Complaint: Cardiac - History obtained from History obtained from: Patient - History of Present Illness Timing: Prior to arrival - Additonal information Additional information: Patient is a 33-year-old female with history of migraines, neuropathy, and recent diagnosis of likely VSD by Echo, which patient describes as "hole in my heart". Patient reports that she has suffered from chronic migraines for many years and follows with a neurologist in [facility]. Patient has previously had extensive neurological work-ups including EEG and MRIs, which have returned relatively unremarkable. Patient states that she has also experienced episodes of altered speech, facial paralysis and numbness, and other complications that have instigated work-ups for stroke, seizure, and MS, which have returned unremarkable.Over the past several months, patient reports that she has been suffering from almost constant lightheadedness/dizziness. These symptoms led to further cardiac work-ups like the echocardiogram as stated above. Patient is scheduled to start cardiac monitoring later this week and is to follow-up with a wheel setter once the monitoring is complete. Patient was again feeling lightheaded/dizzy earlier today, as well as suffering from chest discomfort. Patient reports that her chest discomfort started at 1 PM yesterday with no particular inciting incident or factors. However, patient reports that she has experienced this discomfort before and denies it being similar to GERD. Patient reports that it is associated with talking and breathing. Patient also reports that she feels nauseous during these episodes, but denies vomiting, abdominal pain, urinary changes, stool changes, or fever. Patient denies history of alcohol use or recreational drug use, although occasionally uses marijuana for severe migraines. Patient's last use of marijuana was about 1 month ago. No other improving or worsening factors noted to her symptoms. Review of Systems Cardiac: reports: Chest pain / pressure Respiratory: reports: Dyspnea PD PAST MEDICAL HISTORY - Past Medical History Past Medical History: Yes Cardiovascular: Other Respiratory: None Neuro: Migraines, Other Endocrine/Autoimmune: None GI: None RADIOGRAPHY TECHNICIAN: None : None HEENT: None Psych: None Musculoskeletal: None Derm: None Other Past Medical History: "Hole in the Heart"; Neuropathy - Past Surgical History Past Surgical History: Yes General: Appendectomy HEENT: Tonsil/Adenoidectomy, Other - Present Medications Home Medications: Ambulatory Orders Medication Instructions Recorded Confirmed Gabapentin 300 mg PO TID #90 capsule 11/18/16 08/28/18 HYDROcod/ACETAM 5/325 [[place] 5/325] 1 tab PO Q6H PRN #15 tablet 05/22/17 08/28/18 Naratriptan HCl [Amerge] 1 tab ORAL BID 06/26/18 08/28/18 Topiramate [Topamax] 1 tab ORAL DAILY 06/26/18 08/28/18 - Allergies Allergies/Adverse Reactions: Allergies Allergy/AdvReac Type Severity Reaction Status Date / Time No Known Drug Allergies Allergy Verified 08/28/18 02:48 - Social History Does the pt smoke?: No Smoking Status: Never smoker Does the pt drink ETOH?: Yes Does the pt have substance abuse?: No - Immunizations Immunizations are current?: Yes - POLST Patient has POLST: No PD ED PE NORMAL - General General: Alert and oriented X 3, No acute distress (Tearful, resting comfortably in bed), Well developed/nourished - HEENT HEENT: Atraumatic, PERRL (No nystagmus. Gross visual acuity intact.), EOMI, Moist mucous membranes, Pharynx benign - Cardiac Cardiac: RRR, No murmur - Respiratory Respiratory: No respiratory distress, Clear bilaterally - Abdomen Abdomen: Normal bowel sounds, Soft, Non tender, Non distended - Derm Derm: Normal color, Warm and dry, No rash - Extremities Extremities: No deformity, No tenderness to palpate, No edema - Neuro Neuro: Alert and oriented X 3, No motor deficit, No sensory deficit, Normal speech - Psych Psych: Other (Slightly histrionic, tearful, anxious, fearful) Results - Vitals Vitals: Vital Signs - 24 hr 08/28/18 08/28/18 08/28/18 02:36 02:37 02:48 Temperature 36.5 C Heart Rate 92 93 Respiratory 17 16 Rate Blood Pressure 127/95 H 127/95 H Blood Pressure 123/69 [Left] Blood Pressure 156/101 H [Right] O2 Saturation 99 99 08/28/18 03:39 Temperature 36.2 C L Heart Rate 77 Respiratory 14 Rate Blood Pressure 111/78 Blood Pressure [Left] Blood Pressure [Right] O2 Saturation 98 Oxygen O2 Source Room air - EKG (time done) 0242 Rate: Rate (enter#) Rhythm: NSR Ischemia: Non specific changes - Labs Labs: Laboratory Tests 08/28/18 08/28/18 08/28/18 03:05 03:17 03:17 WBC 6.0 RBC 4.95 Hgb 14.7 Hct 43.4 MCV 87.6 MCH 29.8 MCHC 34.0 RDW 12.4 Plt Count 259 MPV 9.1 Neut # (Auto) 3.6 Lymph # (Auto) 1.6 [place] # (Auto) 0.3 Eos # (Auto) 0.3 Baso # (Auto) 0.1 Absolute Nucleated RBC 0.00 Nucleated RBC % 0.1 Sodium 137 Potassium 3.1 L Chloride 104 Carbon Dioxide 24 Anion Gap 9.0 BUN 12 Creatinine 0.6 Estimated GFR (MDRD) 117 Glucose 105 H Calcium 9.2 Troponin I TSH Urine Color YELLOW Urine Clarity HAZY Urine pH 8.0 H Ur Specific [place] 1.010 Urine Protein NEGATIVE Urine Glucose (UA) NEGATIVE Urine Ketones NEGATIVE Urine Occult Blood NEGATIVE Urine Nitrite NEGATIVE Urine Bilirubin NEGATIVE Urine Urobilinogen 0.2 (NORMAL) Ur Leukocyte Esterase MODERATE H Urine RBC 0-5 Urine WBC 6-10 H Ur Squamous Epith Cells MOD Squamous H Amorphous Sediment Moderate Urine Bacteria Rare Ur Microscopic Review INDICATED Urine Culture Comments NOT INDICATED Urine HCG, Qual NEGATIVE 08/28/18 08/28/18 03:17 03:17 WBC RBC Hgb Hct MCV MCH MCHC RDW Plt Count MPV Neut # (Auto) Lymph # (Auto) [place] # (Auto) Eos # (Auto) Baso # (Auto) Absolute Nucleated RBC Nucleated RBC % Sodium Potassium Chloride Carbon Dioxide Anion Gap BUN Creatinine Estimated GFR (MDRD) Glucose Calcium Troponin I < 0.04 TSH 5.20 Urine Color Urine Clarity Urine pH Ur Specific [place] Urine Protein Urine Glucose (UA) Urine Ketones Urine Occult Blood Urine Nitrite Urine Bilirubin Urine Urobilinogen Ur Leukocyte Esterase Urine RBC Urine WBC Ur Squamous Epith Cells Amorphous Sediment Urine Bacteria Ur Microscopic Review Urine Culture Comments Urine HCG, Qual PD MEDICAL DECISION MAKING - ED course Complexity details: reviewed old records, reviewed results, re-evaluated patient, considered differential, d/w patient, d/w family ED course: Patient has been seen in the ER several times for similar symptoms, as well as follows with multiple specialists including neurologist for these persistent issues. Patient is also scheduled to see a wheel setter in the near future. At this time, have lower suspicion for acute cardiac pathology such as ACS, myocardial infarction, or unstable angina. However, obtained EKG and troponin to further evaluate, which returned unremarkable. Do not find evidence of arrhythmia, ischemia, or other complication. Given duration of symptoms, do not feel repeat troponin is necessary. Also obtained chest x-ray to further evaluate for other sources of chest discomfort such as pneumonia, which returned unremarkable. Patient reports that symptoms are not similar to her previous GERD. Do feel that patient could be experiencing esophageal spasm or anxiety, particularly given patient's presentation tonight. Also considered a PE as the patient's source of chest discomfort, although she reports this chest discomfort is worse with talking or breathing.However, given her duration of symptoms, repeat episodes, and physical exam findings, feel that she is less likely to be experiencing this pathology. Patient can also be ruled out by PERC criteria. While interviewing patient, she had a less than 1 minute episode of extensive eye blinking. Patient was not postictal, nor did she bite her tongue or become incontinent during this time. Patient reports that she remembers the episode, but was unable to stop it or communicate during the episode. Patient may also be experiencing complex migraines or other seizure-like activity including complex partial seizures or psychogenic nonepileptic seizures. Patient reports that she has had previous seizure work-up, however, this returned unremarkable. Patient does take multiple medications such as gabapentin and Topamax for her neuropath y and migraines, so her neurologist feels that she is unlikely to be experiencing a seizure with these medications on board. Given chronicity of issues and physical exam findings at this time, do not feel patient requires emergent brain imaging, but will continue general work-up. Remainder of blood work and urinalysis also returned unremarkable. Feel the patient is safe to discharge home, but discussed close follow-up with her neurologist for hopeful further seizure work-up, as well as continuing with plan for cardiac monitoring and follow-up with wheel setter. Also discussed strict return precautions, supportive cares, and follow-up with her primary care physician in the next several days. Patient voiced understanding and is comfortable with discharge plan. Departure - Departure Disposition: 01 Home, Self Care Clinical Impression: Chest pain Qualifiers: Chest pain type: unspecified Qualified Code(s): R07.9 - Chest pain, unspecified Condition: Good Instructions: ED Chest Pain NonCardiac Follow-Up: Opal Gonsalez MD [Primary Care Provider] - Within 3 Days Comments: Please continue home medications as previously instructed. Please follow-up with your primary care physician and neurologist on Wednesday to further discuss repeat episodes of lightheadedness/dizziness, as well as concern for possible seizure activity. Also recommend appropriate follow-up with wheel setter as scheduled. Return to ED sooner if experience worsening symptoms or other concerns.
[2018-08-28 03:09] LABS: BILIRUBIN,URINE NEGATIVE (NEGATIVE); GLUCOSE, URINE (UA) NEGATIVE (NEGATIVE); KETONES,URINE (UA) NEGATIVE (NEGATIVE); LEUKOCYTE ESTERASE, URINE MODERATE (NEGATIVE); NITRITE,URINE NEGATIVE (NEGATIVE); OCCULT BLOOD,URINE NEGATIVE (NEGATIVE); PROTEIN,URINE NEGATIVE (NEGATIVE); UROBILINOGEN,URINE 0.2 (NORMAL) E.U./dL (NORMAL)
[2018-08-28 03:15] LABS: CLARITY,URINE HAZY (CLEAR); HCG UR QUAL NEGATIVE
[2018-08-28 03:16] LABS: AMORPHOUS SEDIMENT,UR Moderate /LPF; BACTERIA,URINE Rare /HPF (None Seen); RBC,URINE 0-5 /HPF (0-5); SQUAMOUS EPITHELIAL CELL,UR MOD Squamous (<= Few)
--- NOTE | 2018-08-28 03:21 | XRAY Report ---
Reason: chest pain Procedure Date: 08/28/2018 Accession Number: [id number] / [id number] Procedure: XR - Chest 2 View X-Ray CPT Code: 73634 FULL RESULT: EXAM: CHEST RADIOGRAPHY EXAM DATE: 08/28/2018 03:15 AM. CLINICAL HISTORY: Chest pain. COMPARISON: CHEST 2 VIEW PA/LAT 02/02/2017 11:31 AM. TECHNIQUE: 2 views. FINDINGS: Lungs/Pleura: No focal opacities evident. No pleural effusion. No pneumothorax. Normal volumes. Mediastinum: Heart and mediastinal contours are unremarkable. Other: None. IMPRESSION: Normal 2-view chest radiography. [facility]
[2018-08-28 03:24] LABS: BASOPHILS # (AUTO) 0.1 10^3/uL (0.0-0.1); BASOPHILS % (AUTO) 1.5 %; EOSINOPHILS # (AUTO) 0.3 10^3/uL (0.0-0.7); EOSINOPHILS % (AUTO) 4.9 %; HGB - HEMOGLOBIN 14.7 g/dL (12.0-16.0); LYMPHOCYTES # (AUTO) 1.6 10^3/uL (1.5-3.5); LYMPHOCYTES % (AUTO) 27.5 %; MEAN CORPUSCULAR HEMOGLOBIN 29.8 pg (27.0-31.0); MEAN CORPUSCULAR VOLUME 87.6 fL (81.0-99.0); MEAN PLATELET VOLUME 9.1 fL (7.9-10.8); MONOCYTES # (AUTO) 0.3 10^3/uL (0.0-1.0); MONOCYTES % (AUTO) 5.6 %; NEUTROPHILS # (AUTO) 3.6 10^3/uL (1.5-6.6); NEUTROPHILS % (AUTO) 60.5 %; PLT - PLATELET COUNT 259 10^3/uL (130-450); RED BLOOD COUNT 4.95 10^6/uL (4.20-5.40); RED CELL DISTRIBUTION WIDTH 12.4 % (12.0-15.0)
[2018-08-28 03:33] LABS: CALCIUM 9.2 mg/dL (8.5-10.3); CREATININE 0.6 mg/dL (0.4-1.0)
[2018-08-28 04:18] VITALS: BP 108/74
== END 2018-08-28 04:17 | disposition home or self-care (01) ==
LOC: EDUNIT# → ED 02:35
DX: R07.9 Chest pain, unspecified (principal); R42 Dizziness and giddiness; G62.9 Polyneuropathy, unspecified
CPT/HCPCS: 36415; 71046; 80048; 81001; 81003; 81025; 84443; 84484; 85025; 87086; 93005; 99284